=== PATIENT | female | born 1965 | race Caucasian/White ===

== ENCOUNTER 2017-12-24 09:26 | Observation (INO) | payer BC ==
[~2017-12-24] VITALS: Ht 162.6 cm; Wt 74.9 kg
[2017-12-24] MEDS ORDERED: SODIUM CHLORIDE 0.9% 1000ML 1,000 ML IV STA (09:58)
[2017-12-24] MEDS ORDERED: ONDANSETRON HCL INJ 2 MG/ML VIAL IV STA (09:58)
[2017-12-24] MEDS ORDERED: MORPHINE SULFATE 5 MG/ML VIAL IV ONE (10:00)
[2017-12-24 12:04] LABS: BILIRUBIN,URINE NEGATIVE (NEGATIVE); CLARITY,URINE SL CLOUDY (CLEAR); COLOR,URINE YELLOW (YELLOW); KETONES,URINE NEGATIVE (NEGATIVE); LEUKOCYTE ESTERASE ,URINE TRACE (NEGATIVE); NITRITE,URINE NEGATIVE (NEGATIVE); PROTEIN,URINE DIPSTICK NEGATIVE (NEGATIVE); URINE UROBILINOGEN 0.2 mg/dL (0.2 - 1)
[2017-12-24 12:21] LABS: BACTERIA,URINE RARE /HPF; EPITHELIAL CELLS,URINE FEW /LPF; RBC,URINE 0-5 /HPF (0-5); WBC,URINE (MAN) 0-5 /HPF (0-5)
[2017-12-24 13:23] LABS: BASOPHILS % 0.2 % (0.0-1.0); EOSINOPHILS # (AUTO) 0.1 (0.0-0.4); EOSINOPHILS % 1.3 % (0.0-6.0); HEMATOCRIT 43.4 % (34.2-44.1); HEMOGLOBIN 13.8 g/dL (12.0-16.0); LYMPHOCYTES # (AUTO) 1.9 (1.0-3.2); LYMPHOCYTES % 20.7 % (18.0-39.1); MEAN CORPUSCULAR HEMOGLOBIN 26.7 pg (28-32); MEAN CORPUSCULAR HGB CONC 31.8 g/dL (31-35); MEAN CORPUSCULAR VOLUME 84.1 fL (81-99); MONOCYTES # (AUTO) 0.4 (0.2-0.8); MONOCYTES % 4.6 % (4.4-11.3); NEUTROPHILS # (AUTO) 6.7 (2.1-6.9); PLATELET COUNT 201 x10e3/uL (140-360); RED BLOOD COUNT 5.16 x10e6/uL (3.6-5.1)
[2017-12-24 13:37] LABS: ALANINE AMINOTRANSFERASE 17 IU/L (0-55); ALBUMIN 4.3 g/dL (3.5-5.0); ALBUMIN/GLOBULIN RATIO 1.3 (0.8-2.0); ALKALINE PHOSPHATASE 60 IU/L (40-150); ANION GAP 15.4 mmol/L (8-16); BLOOD UREA NITROGEN 29 mg/dL (7-26); BUN/CREATININE RATIO 36 (6-25); CARBON DIOXIDE 27 mmol/L (22-29); CHLORIDE 102 mmol/L (98-107); EST GLOMERULAR FILTRATION RATE > 60 ML/MIN (60-); GLUCOSE 103 mg/dL (74-118); LIPASE 26 U/L (8-78); POTASSIUM 4.4 mmol/L (3.5-5.1); SODIUM 140 mmol/L (136-145)
--- NOTE | 2017-12-24 15:08 | Diagnostic Imaging Report ---
EXAM: CT Abdomen and Pelvis WITH contrast INDICATION: Right lower quadrant pain COMPARISON: None. TECHNIQUE: Abdomen and Pelvis was scanned utilizing a multidetector helical scanner after administration of IV contrast. Coronal and sagittal reformations were obtained. IV CONTRAST: 100 mL Isovue 320 COMPLICATIONS: None RADIATION DOSE: Total DLP:307 mGy*cm Estimated effective dose: (DLP x 0.015 x size factor) mSv CTDIvol has been reviewed. It is below the limits set by the Radiation Protocol Committee (RPC). Appropriate CT dose reduction techniques were utilized. FINDINGS: Abdomen: Lung Bases: No acute findings. Solid Organs: Liver, adrenals, kidneys, spleen, and pancreas are unremarkable except for small extrarenal pelvis right kidney and to small to characterize hypodensity in the spleen, of doubtful clinical significance. Upper GI Tract: Decompressed stomach limits evaluation. No small bowel obstructive changes. Vascularity: No aortic aneurysm. Lymph Nodes: No suspicious adenopathy. Other: None. Pelvis: Bladder: Unremarkable. Other: Within limitations of CT, uterus/adnexa unremarkable. Colon: Moderate stool. No acute colonic findings. Appendix demonstrates wall hyperemia and mild surrounding stranding. Maximal diameter 11 mm. Bones: No acute findings. IMPRESSION: 1. Mild dilation of the appendix, wall hyperemia, and trace surrounding stranding suggest early appendicitis. Clinical and laboratory correlation recommended. Signed by: Dr. Florentin Mason MD on 12/24/2017 3:05 PM
[2017-12-24] MEDS ORDERED: IOPAMIDOL 370 MG/ML 200 ML INFUS..BTL INJ ONE (15:54)
[2017-12-24] MEDS ORDERED: SODIUM CHLORIDE 0.9% 50ML 50 ML ONE (15:54)
[2017-12-24] MEDS ORDERED: ONDANSETRON HCL INJ 2 MG/ML VIAL IV PRN (16:15)
[2017-12-24] MEDS ORDERED: DEXTROSE 5%/0.45% SOD CHL 1,000 ML IV ONE (16:15)
[2017-12-24] MEDS ORDERED: MORPHINE SULFATE 2 MG/ML SYR IV PRN (16:15)
[2017-12-24] MEDS ORDERED: MORPHINE SULFATE INJ 4 MG/ML INJ IV PRN (16:15)
[2017-12-24] MEDS ORDERED: SODIUM CHLORIDE 0.9% 1000ML 1,000 ML ONE (18:09)
[2017-12-24] MEDS: CEFTRIAXONE SOD 1 GM VIAL IV SCH (18:15)
[2017-12-24] MEDS ORDERED: MIDAZOLAM HCL 2 MG/2 ML VIAL ONE (18:19)
[2017-12-24] MEDS ORDERED: FENTANYL CITRATE/PF 100MCG/2 ML INJ ONE (18:19)
[2017-12-24] MEDS ORDERED: BUPIVACAINE 0.25%/EPI 30ML SDV INJ ONE (18:47)
[2017-12-24 18:50] VITALS: BP 119/75
[2017-12-24] MEDS ORDERED: SUGAMMADEX SODIUM 200 MG/2 ML VIAL IV ONE ×2 (19:35→19:37)
[2017-12-24] MEDS ORDERED: LIDOCAINE HCL 2% LOCAL INJ 5 ML SDV VIAL INJ ONE (19:45)
[2017-12-24] MEDS ORDERED: SUCCINYLCHOLINE 200 MG/10 ML SYR ONE (19:45)
[2017-12-24] MEDS ORDERED: PROPOFOL IV EMULSION 10 MG/ML 20 ML VIAL ONE (19:45)
[2017-12-24] MEDS ORDERED: DEXAMETHASONE SOD PHOS INJ 4 MG/ML VIAL ONE (19:45)
[2017-12-24] MEDS ORDERED: SEVOFLURANE INHAL SOLN 250 ML PEN BTL ONE (19:45)
[2017-12-24] MEDS ORDERED: ONDANSETRON HCL INJ 2 MG/ML VIAL ONE (19:45)
[2017-12-24] MEDS ORDERED: ROCURONIUM BROMIDE 10 MG/ML 5ML VIAL ONE (19:45)
[2017-12-24] MEDS ORDERED: MEPERIDINE HCL INJ 50 MG/ML INJ ONE (20:03)
[2017-12-24 20:47] VITALS: BP 108/56
[2017-12-24 21:01] VITALS: BP 108/56
[2017-12-24 21:05] VITALS: BP 108/56
--- NOTE | 2017-12-24 21:43 | History and Physical ---
CHIEF COMPLAINT: Abdominal pain. HISTORY OF PRESENT ILLNESS: A 52-year-old female with 1-day history of pain starting in the periumbilical area and relocate to the right lower quadrant with nausea, had no vomiting, no fevers, chills or diarrhea. PAST MEDICAL HISTORY: Significant for asthma and GERD. SURGICAL HISTORY: Positive for . ALLERGIES: SHE HAS NO DRUG ALLERGIES. SOCIAL HABITS: The patient denies smoking or alcohol abuse. REVIEW OF SYSTEMS: No chest pain, shortness of breath or cough. EXAM VITAL SIGNS: Stable, afebrile. GENERAL: She is awake, alert, in mild discomfort. HEENT: Sclerae nonicteric. NECK: Supple. LUNGS: Clear. HEART: Regular rate and rhythm. ABDOMEN: Soft with right lower quadrant tenderness and mild rebound. LAB: White cell count is 9, hemoglobin of 14. Creatinine of 0.8. CT scan showed mildly dilated appendix concerning for early appendicitis. ASSESSMENT : Acute appendicitis. PLAN: Laparoscopic appendectomy. Attendant risks has been discussed. Job#: [id number] CQ
--- NOTE | 2017-12-24 22:22 | Operative Report ---
DATE OF PROCEDURE: December 24, 2017 PREOPERATIVE DIAGNOSIS: Acute appendicitis. POSTOPERATIVE DIAGNOSIS: Acute appendicitis. OPERATIVE PROCEDURE: Laparoscopic appendectomy. SISTER SUPERIOR: None. ANESTHESIA: General endotracheal, Dr. Hurd. INDICATION: A 52-year-old female, 1-day history of pain in right lower quadrant. CT scan showed early appendicitis. Patient consented for laparoscopic appendectomy. Attending risks discussed. PROCEDURE FINDINGS: Acute appendicitis. DESCRIPTION OF PROCEDURE: Patient brought to the OR, intubated. Abdomen prepped with alcohol and draped in sterile fashion. An infraumbilical incision is made and a 12-mm port inserted. Insufflation then begun. Under direct vision, other port sites placed in right upper quadrant and suprapubic area. Appendix is noted to be grossly inflamed, but not perforated. The appendix is mobilized and the mesoappendix controlled with the LigaSure instrument down to the neck, which was then transected with an Endo RUBENS stapler vascular load. The appendix placed in an Endopouch and retrieved out the peritoneal cavity. Operative field was irrigated. Hemostasis achieved. All ports removed under direct vision. Fascial closure with 0-Vicryl. Skin was closed with subcuticular stitch. Patient was extubated, transported to the recovery room. ESTIMATED BLOOD LOSS: 4 mL. Job#: [id number] CQ
[2017-12-25] VITALS (8 sets, daily range): BP systolic 103–120; BP diastolic 61–69
[2017-12-25] MEDS: HYDROCODONE/APAP 7.5MG-325MG 1 EA TAB PO PRN (05:48)
[2017-12-25] MEDS: CEFTRIAXONE SOD 1 GM VIAL IV SCH (12:32)
[2017-12-25] MEDS ORDERED: MAGNESIUM HYDROXIDE 30 ML UDC PO NR (17:00)
[2017-12-26] VITALS: BP 98/54
[2017-12-26 04:00] VITALS: BP 108/57
[2017-12-26 08:25] VITALS: BP 104/62
[2017-12-26] MEDS: HYDROCODONE/APAP 7.5MG-325MG 1 EA TAB PO PRN (10:00)
[2017-12-26] MEDS ORDERED: MAGNESIUM HYDROXIDE 30 ML UDC PO ONE (10:45)
[2017-12-26] MEDS: CEFTRIAXONE SOD 1 GM VIAL IV SCH (11:42)
[2017-12-26 12:16] VITALS: BP 104/65
--- OUTSIDE RECORDS SUMMARY | 2017-12-30 12:34 | XMS REPORT ---
Author Author [facility] Address Unknown Phone Unavailable Care Team Providers Care Vegetable Loader Name Role Phone Rodger MCNAMARA Unavailable Unavailable Payers Payer Name Policy Type Policy Number Effective Date Expiration Date Problems This patient has no known problems. Allergies, Adverse Reactions, Alerts Allergy Name Allergy Type Status Severity Reaction(s) Onset Date Inactive Date Treating Clinician Comments No Known Contrast Allergies DA Active U 2008-02-18 00:00:00 No Known Drug Allergies DA Active U 2008-02-18 00:00:00 No Known Food Allergies DA Active U 2008-02-18 00:00:00 No Known Other Allergies DA Active U 2008-02-18 00:00:00 Medications This patient has no known medications. Results Test Description Test Time Test Comments Text Results Atomic Results Result Comments CT ABDOMEN/PELVIS W 2017-12-24 15:01:00 [place] [address] Patient Name: KASEY CHANEY MR #: [id number] : 1965 Age/Sex: 52/F Req #: [id number] Adm Physician: Ordered by: KATHY MCNAMARA MD Report #: [id number] Location: ER Room/Bed: Procedure: [id number] CT/CT ABDOMEN/PELVIS W Exam Date: 12/24/17 Exam Time: 1430 REPORT STATUS: Signed EXAM: CT Abdomen and Pelvis WITH contrast INDICATION: Right lower quadrant pain COMPARISON: None. TECHNIQUE: Abdomen and Pelvis was scanned utilizing a multidetector helical scanner after administration of IV contrast. Coronal and sagittal reformations were obtained. IV CONTRAST: 100 mL Isovue 320 COMPLICATIONS: None RADIATION DOSE: Total DLP:307 mGy*cm Estimated effective dose: (DLP x 0.015 x size factor) mSv CTDIvol has been reviewed. It is below the limits set by the Radiation Protocol Committee (RPC). Appropriate CT dose reduction techniques were utilized. FINDINGS: Abdomen: Lung Bases: No acute findings. Solid Organs: Liver, adrenals, kidneys, spleen, and pancreas are unremarkable except for small extrarenal pelvis right kidney and to small to characterize hypodensity in the spleen, of doubtful clinical significance. Upper GI Tract: Decompressed stomach limits evaluation. No small bowel obstructive changes. Vascularity: No aortic aneurysm. Lymph Nodes: No suspicious adenopathy. Other: None. Pelvis: Bladder: Unremarkable. Other: Within limitations of CT, uterus/adnexa unremarkable. Colon: Moderate stool. No acute colonic findings. Appendix demonstrates wall hyperemia and mild surrounding stranding. Maximal diameter 11 mm. Bones: No acute findings. IMPRESSION: 1. Mild dilation of the appendix, wall hyperemia, and trace surrounding stranding suggest early appendicitis. Clinical and laboratory correlation recommended. Signed by: Dr. Florentin Mason MD on 12/24/2017 3:05 PM Dictated By: FLORENTIN MASON MD [id number] Transcribed By: TYRELL on 12/24/17 2814 COPY TO: KATHY MCNAMARA MD
--- NOTE | 2018-03-19 18:11 | Discharge Summary ---
FINAL DIAGNOSIS: Appendicitis. HOSPITAL COURSE: This patient is a 52-year-old female admitted through the emergency room with a chief complaint of abdominal pain in the lower abdomen with vomiting and was found on CT scan to have appendicitis. She has consented to undergo laparoscopic appendectomy under anesthesia, which was carried out without any complications. Postoperatively the patient had a mild ileus which eventually resolved. Patient tolerated liquid diet and ambulated and voided prior to discharge home and would be followed up in the office in 1 week. TOM SHERIDAN M.D. Job#: [id number] CLAIRE
== END 2017-12-26 13:26 | disposition home or self-care (01) ==
LOC: ER 09:26 → ERHOLD 16:27 → IMCU 18:30
PROVIDERS: ADMIT Surgery; ATTEND Surgery
DX: K35.32 Acute appendicitis with perforation, localized peritonitis, and gangrene, without abscess (principal); J45.909 Unspecified asthma, uncomplicated; K21.9 Gastro-esophageal reflux disease without esophagitis
CPT/HCPCS: 36415; 44970; 74177; 80053; 81001; 83690; 85025; 88304; 99284; G0378 ×3; J0696 ×3; J1100; J2001; J2175; J2250; J2270 ×4; J2405 ×2; J7030; Q9967